=== PATIENT | male | born 1975 | race Caucasian/White ===

== ENCOUNTER 2016-07-08 09:14 | Emergency (ER) | payer OTHER ==
[~2016-07-08] VITALS: Ht 172.7 cm; Wt 67.1 kg
[2016-07-08] MEDS ORDERED: HYDROCODONE-AP1 EAC6 PO (11:28)
[2016-07-08] MEDS ORDERED: IBUPROFEN 600600 M1 PO (11:28)
[2016-07-08 11:59] VITALS: BP 122/86
== END 2016-07-08 12:00 | disposition home or self-care (01) ==
LOC: ER 09:14
DX: S61.217A Laceration without foreign body of left little finger without damage to nail, initial encounter (principal); S61.215A Laceration without foreign body of left ring finger without damage to nail, initial encounter; S61.412A Laceration without foreign body of left hand, initial encounter; W11.XXXA Fall on and from ladder, initial encounter; Y93.89 Activity, other specified; Y92.89 Other specified places as the place of occurrence of the external cause; Y99.0 Civilian activity done for income or pay